=== PATIENT | male | born 1970 | race Caucasian/White ===

== ENCOUNTER 2020-01-15 06:56 | Emergency (ER) | payer OTHER ==
[~2020-01-15] VITALS: Ht 177.8 cm; Wt 100.0 kg
[2020-01-15 07:38] LABS: HEMATOCRIT 45.1 % (39.0-50.0); HEMOGLOBIN 15.9 g/dl (14.0-18.0); IMMATURE GRANULOCYTES 0.4 % (0.0-5.0); MEAN CELL VOLUME 88.1 fL CALC (80.0-100.0); MEAN CORPUSCULAR HGB 31.1 pG CALC (26.0-32.0); MEAN CORPUSCULAR HGB CONC 35.3 g/dL CAL (32.0-36.0); NEUT# 8.84 thou/uL (1.82-7.42); RED BLOOD COUNT 5.12 mill/uL (4.70-6.10); RED CELL DISTRI WIDTH 11.9 % (11.5-15.5)
[2020-01-15 07:57] LABS: ALBUMIN 4.5 g/dL (3.2-5.0); ALKALINE PHOSPHATASE 70 u/l (38-126); ANION GAP 12 (6-22 (CALC)); BILIRUBIN, TOTAL 0.8 mg/dL (0.0-1.4); BUN 18 mg/dL (9-20); BUN/CREATININE RATIO 23 (12-20 (CALC)); CARBON DIOXIDE 27 mmol/l (22-30); CHLORIDE 101 mmol/l (95-108); CREATININE 0.8 mg/dL (0.7-1.3); GFR > 60 ML/MIN (>=60 (CALC)); GFR FOR AFR.AMER. > 60 ML/MIN (>=60 (CALC)); POTASSIUM 3.6 mmol/l (3.5-5.1); SGOT/AST 20 u/l (17-59); SODIUM 136 mmol/l (137-146); TOTAL PROTEIN 7.3 g/dL (6.3-8.2)
[2020-01-15] MEDS ORDERED: ASPIRIN ADULT L81 MG PO (08:12)
[2020-01-15 10:22] VITALS: BP 155/68
== END 2020-01-15 10:40 | disposition home or self-care (01) | DRG 313 ==
LOC: ED 06:56
PROVIDERS: Student in an Organized Health Care Education/Training Program
DX: R07.9 Chest pain, unspecified (principal); I10 Essential (primary) hypertension; T46.5X6A Underdosing of other antihypertensive drugs, initial encounter; Z91.128 Patient's intentional underdosing of medication regimen for other reason

== ENCOUNTER 2021-08-24 14:40 | Emergency (ER) | payer OTHER ==
[~2021-08-24] VITALS: Ht 177.8 cm; Wt 95.0 kg
[~2021-08-24 14:40] MED LIST: ASPIRIN ADULT L81 MG PO; BENICAR20 MG PO; DIOVAN160 MG PO
[2021-08-24 14:49] VITALS: BP 156/97
[2021-08-24 15:00] VITALS: BP 158/106
[2021-08-24] MEDS ORDERED: AMOX/K CLAV875 M1 PO (15:03)
[2021-08-24 15:15] VITALS: BP 150/100
[2021-08-24 15:24] VITALS: BP 150/100
== END 2021-08-24 15:29 | disposition home or self-care (01) | DRG 605 ==
LOC: ED 14:40
DX: S80.872A Other superficial bite, left lower leg, initial encounter (principal); I10 Essential (primary) hypertension; W54.0XXA Bitten by dog, initial encounter; Y93.89 Activity, other specified; Y99.0 Civilian activity done for income or pay